=== PATIENT | male | born 1955 | race Caucasian/White ===

== ENCOUNTER 2016-09-13 14:58 | Emergency (ER) | payer SELFPAY ==
[~2016-09-13] VITALS: Ht 172.7 cm; Wt 81.6 kg
--- NOTE | 2016-09-13 15:03 | Emergency Room Report ---
History of Present Illness General Chief Complaint: Alcohol Intoxication Source: Patient Present Illness HPI Patient is a 61-year-old male who presented after having increased altered level consciousness. Patient was picked up from the street. The patient reported having increased recent alcohol use. He denied any current complaints. The patient was noted to have recent alcohol use. Patient states he is a smoker. Allergies: Coded Allergies: No Known Allergies (Unverified , 09/13/16) Patient History Past Medical History: see triage record Reviewed Nursing Documentation: PMH: Agreed, PSxH: Agreed Nursing Documentation-PMH Past Medical History: Deferred Review of Systems All Other Systems: limited - by poor cooperation Physical Exam Vital Signs Date Time Temp Pulse Resp B/P Pulse Ox O2 Delivery O2 Flow Rate FiO2 09/13/16 14:54 97.3 88 16 132/75 99 Room Air General Appearance: well appearing, no apparent distress, alert, GCS 15 Head: normocephalic, atraumatic ENT: hearing grossly normal, normal voice Neck: full range of motion, supple Respiratory: no respiratory distress, speaking full sentences Cardiovascular #1: normal inspection, regular rate, rhythm, no edema Gastrointestinal: normal inspection Musculoskeletal: normal inspection, digits/nails normal, no calf tenderness Neurologic: normal inspection, alert, oriented x3, normal gait, other - slurred speech Psychiatric: mood/affect normal Skin: no rash Medical Decision Making Diagnostic Impression: Primary Impression: Acute alcoholic intoxication ER Course Patient presented for altered mental status. Differential diagnosis included but was not limited to drug overdose, alcohol intoxication, ischemic stroke, subarachnoid hemorrhage, hypoglycemia, spinal cord injury, neurodegenerative disorder, urinary tract infection, hypoxemia. Patient's benign exam and does not appear to require any further imaging or laboratory testing at this time. The patient appears to be minimally intoxicated and does not require laboratory testing at this time.The patient was observed in the emergency department gradually improving mental status. The patient subsequently eloped without notifying staff. The patient appeared to be able to care for himself at time of elopement Last Vital Signs Date Time Temp Pulse Resp B/P Pulse Ox O2 Delivery O2 Flow Rate FiO2 09/13/16 14:54 97.3 88 16 132/75 99 Room Air Status: improved Disposition: HOME, SELF-CARE Condition: Stable Bogdan [place] Sep 13, 2016 15:03
[2016-09-13 15:04] VITALS: BP 132/75
[2016-09-13 15:39] VITALS: BP 132/75
== END 2016-09-13 15:35 | disposition left against medical advice (07) ==
LOC: EDBD 14:58 → EMR 15:20
DX: F10.129 Alcohol abuse with intoxication, unspecified (principal); F17.200 Nicotine dependence, unspecified, uncomplicated
CPT/HCPCS: 99284